=== PATIENT | male | born 1990 | race Caucasian/White ===

== ENCOUNTER 2018-11-25 23:12 | Emergency (ER) | payer OTHER | END 2018-11-26 02:51 | disposition home or self-care (01) | LOC: FTE 23:12 | DX: J06.9 Acute upper respiratory infection, unspecified (principal); R21 Rash and other nonspecific skin eruption | CPT/HCPCS: 99283; Z7502 ==

== ENCOUNTER 2019-04-24 13:23 | Emergency (ER) | payer OTHER | END 2019-04-24 14:43 | disposition home or self-care (01) | LOC: FTE 13:23 | DX: S01.91XA Laceration without foreign body of unspecified part of head, initial encounter (principal); W25.XXXA Contact with sharp glass, initial encounter; Y92.9 Unspecified place or not applicable | CPT/HCPCS: 99283; Z7502 ==